=== PATIENT | female | born 1965 | race Caucasian/White ===

== ENCOUNTER → 2016-10-24 | Outpatient (CLI) | payer BC ==
[~2016-10-24] MED LIST: ADAL40KI SC; ASPCH81X PO; ATOR-24 PO; CHOLCAP5 PO; FOLI1TAB8 PO; IRON PO; METH2.5T PO; TRAZ50TA35 PO; ZNTT/150 PO
--- NOTE | 2016-10-24 13:47 | MAMMOGRAPHY REPORT ---
UNILATERAL RIGHT DIGITAL DIAGNOSTIC MAMMOGRAM: 10/24/2016 CLINICAL HISTORY: Callback from screening mammogram for right breast calcifications. TECHNIQUE: Spot magnification right cc and ML views were obtained. COMPARISON: Comparison is made to exams dated: 10/11/2016 mammogram, 03/28/2014 mammogram, 10/28/2013 u ltrasound, 10/28/2013 mammogram, 10/01/2012 mammogram, and 10/03/2011 mammogram - [facility]. BREAST COMPOSITION: The tissue of the right breast is heterogeneously dense, which may obscure smal l masses. FINDINGS: Spot magnification views of the right breast demonstrate a small 3 cm cluster of punctate and amorphous calcifications in the right upper outer quadrant, not clearly evident on prior exams. Given that the cluster is new, it is indeterminate and stereotactic biopsy is recommended for furt her evaluation. Other faint calcifications are seen scattered throughout the right breast which do not appear significantly changed compared to prior exams. IMPRESSION: ACR BI-RADS CATEGORY 4: SUSPICIOUS New 3 mm cluster of calcifications in the right upper outer quadrant. The calcifications are indete rminate and stereotactic biopsy is recommended for further evaluation. A phone call was made to the physician's office to confirm faxed results were received. The patient has been verbally notified of the results. She tentatively scheduled the biopsy before leaving the department. The patient is currently on a baby aspirin; I will leave it up to the patient's physic ankur if she can safely discontinue the aspirin for 5 days prior to the procedure. Approximately 10% of breast cancers are not detected with mammography. A negative mammographic repor t should not delay biopsy if a clinically suggestive mass is present. Izzy Birmingham M.D. ah/:10/24/2016 09:01:30 Audio Visual Production Specialist: Ana Luisa VARGAS(Anders)(Akbar), [facility] letter sent: Abnormal 4/5 BI-RADS Code: ACR BI-RADS Category 4: Suspicious
== END | disposition home or self-care (01) ==
LOC: C.MAMM 08:20
DX: R92.1 Mammographic calcification found on diagnostic imaging of breast (principal)

== ENCOUNTER → 2016-10-31 | Outpatient (CLI) | payer BC ==
[~2016-10-31] MED LIST changes: +FOLI1TAB7 PO; -FOLI1TAB8 PO
--- NOTE | 2016-10-31 13:13 | Discharge Instructions ---
Discharge Instructions Procedure Procedure Date: Oct 31, 2016. Reason for visit: Right Calcs. Discharge Discharge Date: Oct 31, 2016. Discharge Diagnosis: status post breast biopsy Instructions Activity Recommendations: Additional Limitations (see below) Return to School/Work: no limitations Recommended Home Diet: No Limitations Provider Instructions: ACTIVITY RECOMMENDATIONS: * No lifting, pushing, pulling or exercising the affected side for three days. RETURN TO SCHOOL/WORK: * You may return to work/school after the procedure, but do not perform any strenuous activities for 24 to 48 hours. MEDICATIONS: * Tylenol (two 325 mg) every four to six hours if needed for mild pain (if not allergic to Tylenol). DIET: * Resume previous diet. SPECIAL CARE INSTRUCTIONS: * Keep biopsy site dry for 24 hours. May shower after 24 hours, but do not soak (bathe) incision. * May remove Tegaderm (plastic patch) tomorrow AFTER showering. * Leave the steri-strips on for one week. Allow the steri-strips to fall off by themselves. If not off after one week, you may remove them. You may place a Bandaid crosswise over the strips, if desired. * Apply ice 10 minutes on and 10 minutes off as needed. * Wear a bra at bedtime to sleep more comfortably for 2-3 days. * Your referring physician should have the results after approximately 5 to 7 business days. * Call for unusual bleeding, fever, drainage, etc or if you have any questions call during normal business hours or after hours call Dr Birmingham, . FOLLOW UP VISIT: Follow-up with Referring Physician as scheduled. Allergies Coded Allergies: No Known Allergies (Verified , 07/02/16) Osmani Jefferson Recommendations: Call your doctor if: * Temperature above 101 degrees * Pain not relieved by pain medicine ordered * There is increased drainage or redness from any incision * You have any unanswered questions or concerns. Your Doctors Instructions noted above were prepared by provider Izzy Birmingham. Patient Signature Section: Patient Instructions Signature Page Joi Montero Patient (or Guardian) Signature/Date: I have read and understand the instructions given to me by my caregivers. Caregiver/RN/Doctor Signature/Date: The above-named patient and/or guardian has received patient instructions on this date. + Original Patient Signature Page (only) stays with chart. Please make copy for patient.
--- NOTE | 2016-10-31 16:11 | MAMMOGRAPHY REPORT ---
UNILATERAL RIGHT DIGITAL DIAGNOSTIC MAMMOGRAM: 10/31/2016 CLINICAL HISTORY: Status post stereotactic biopsy of right upper outer quadrant calcifications. TECHNIQUE: Postprocedural right CC and LM views were obtained. COMPARISON: Comparison is made to exams dated: 10/11/2016 mammogram, 10/24/2016 mammogram, 10/28/2013 m ammogram, and 10/01/2012 mammogram - [facility]. BREAST COMPOSITION: The tissue of the right breast is heterogeneously dense, which may obscure smal l masses. FINDINGS: A new biopsy marker clip is seen at the site of the biopsied calcifications in the right upper outer quadrant. No significant postbiopsy hematoma is seen. IMPRESSION: POST PROCEDURE IMAGING FOR MARKER PLACEMENT New biopsy marker clip status post stereotactic biopsy of right upper outer quadrant calcifications. Pathology results are pending. Approximately 10% of breast cancers are not detected with mammography. A negative mammographic repor t should not delay biopsy if a clinically suggestive mass is present. Izzy Birmingham M.D. ah/:10/31/2016 13:29:11 Electrical Experimental Mechanic: Raz VARGAS(Anders)(M), [facility] BI-RADS Code: Post Procedure Imaging For Marker Placement
--- NOTE | 2016-10-31 16:11 | MAMMOGRAPHY REPORT ---
STEREOTACTIC GUIDED BIOPSY RIGHT BREAST: 10/31/2016 CLINICAL HISTORY: Indeterminate calcifications in the right upper outer quadrant. PATIENT CONSENT: The procedure, risks, benefits, and alternatives of stereotactic biopsy with clip p lacement were discussed with the patient, and verbal and written consent was obtained. A timeout wa s performed immediately prior to the procedure. PROCEDURE DESCRIPTION: With stereotactic guidance, aseptic technique, and lidocaine as a local anest hetic (1% lidocaine to anesthetize the skin and 1% lidocaine with epinephrine to anesthetize the leonel per tissues), the area of concern was sampled multiple times with a 9-gauge vacuum-assisted biopsy n eedle (Suros Eviva). The path of approach was lateral. The specimen radiograph demonstrates calcif ications to be present in the samples. A metallic marker clip was placed at the biopsy site. This was confirmed on postprocedure mammograms. Direct pressure was applied at the biopsy site and hemos tasis was readily achieved. The patient tolerated the procedure without complication. She was give n wound care instructions. COMPARISON: Comparison is made to exams dated: 10/24/2016 mammogram, 10/11/2016 mammogram, 03/28/2014 m ammogram, 10/28/2013 mammogram, 10/01/2012 mammogram, and 04/03/2012 mammogram - [facility]. IMPRESSION: STEREOTACTIC GUIDED BIOPSY Stereotactic biopsy of indeterminate calcifications in the right upper outer quadrant, with clip tia cement. The patient will receive pathology results from her referring physician. Izzy Birmingham M.D. /:10/31/2016 13:14:19 Attending Technologist: Raz Alvarez RT(R)(M), [facility] Eye Physician: Kendra Anglin RT(R)(M), [facility]
== END | disposition home or self-care (01) ==
LOC: C.MAMM 12:36
DX: R92.1 Mammographic calcification found on diagnostic imaging of breast (principal)

== ENCOUNTER → 2016-12-10 | Outpatient (CLI) | payer BC | END | disposition home or self-care (01) | LOC: C.PAPS 10:07 | PROVIDERS: ATTEND Obstetrics & Gynecology | DX: Z01.419 Encounter for gynecological examination (general) (routine) without abnormal findings (principal) ==

== ENCOUNTER → 2017-08-05 | Outpatient (CLI) | payer BC ==
--- NOTE | 2017-08-05 17:31 | DIAGNOSTIC IMAGING REPORT ---
PELVIS AND RIGHT HIP MRI HISTORY: Right hip pain. TECHNIQUE: Multiplanar multisequence MRI of the pelvis and right hip were performed without the use of intravenous contrast. COMPARISON STUDY: None. FINDINGS: Normal marrow signal intensity seen throughout the visualized osseous structures. No fracture or dislocation within the pelvis or hips. No hip effusions. Cartilage spaces are maintained for age. The visualized pelvic structures are within normal limits. Soft tissues are unremarkable. Possible focal tear within the anterior labrum of the right hip only seen on image 11 of 18 of the sagittal/oblique STIR sequences. IMPRESSION: 1. Suspect a small focal tear within the anterior labrum of the right hip as described above. 2. No fracture or dislocation within the pelvis or hips. Electronically signed by: Avila Alexandre M.D. 08/05/2017 5:30 PM Dictated Date/Time: 08/05/2017 5:21 PM
== END | disposition home or self-care (01) ==
LOC: C.MRIBC 16:00
DX: M25.552 Pain in left hip (principal)

== ENCOUNTER → 2017-08-08 | Outpatient (CLI) | payer BC | END | disposition home or self-care (01) | LOC: C.RDSM 13:30 | PROVIDERS: ATTEND Orthopaedic Surgery | DX: M25.551 Pain in right hip (principal) ==

== ENCOUNTER → 2017-10-16 | Outpatient (CLI) | payer BC ==
[~2017-10-16] MED LIST changes: -FOLI1TAB7 PO; +FOLI1TAB8 PO
--- NOTE | 2017-10-16 14:52 | MAMMOGRAPHY REPORT ---
BILATERAL DIGITAL SCREENING MAMMOGRAM TOMOSYNTHESIS WITH CAD: 10/16/2017 CLINICAL HISTORY: Routine screening. Patient has no complaints. TECHNIQUE: Breast tomosynthesis in addition to standard 2D mammography was performed. Current study was also evaluated with a Computer Aided Detection (CAD) system. COMPARISON: Comparison is made to exams dated: 10/31/2016 mammogram, 10/11/2016 mammogram, 09/30/2011 mammogram, 09/26/2010 mammogram, 09/25/2009 mammogram - [facility], and 07/30/2007. BREAST COMPOSITION: The tissue of both breasts is heterogeneously dense, which may obscure small mas ses. FINDINGS: No suspicious masses, calcifications, or areas of architectural distortion are noted in ei ther breast. There has been no significant interval change compared to prior exams. Bilateral benign appearing calcifications are not significantly changed. A biopsy marker clip is again noted in the right upper outer quadrant. IMPRESSION: ACR BI-RADS CATEGORY 2: BENIGN There is no mammographic evidence of malignancy. A 1 year screening mammogram is recommended. The pa tient will receive written notification of the results. Approximately 10% of breast cancers are not detected with mammography. A negative mammographic report should not delay biopsy if a clinically suggestive mass is present. Izzy Birmingham M.D. ah/:10/16/2017 14:22:40 Production Support Consultant: Kat PUTNAM)(M), [facility] letter sent: Normal 1/2 BI-RADS Code: ACR BI-RADS Category 2: Benign
== END | disposition home or self-care (01) ==
LOC: C.MAMM 08:29
DX: Z12.31 Encounter for screening mammogram for malignant neoplasm of breast (principal)

== ENCOUNTER 2025-06-23 11:50 | Inpatient (IN) ==
[2025-06-23] MEDS: OPTIRAY 320 125ml IV ONE (12:08)
--- NOTE | 2025-06-23 12:19 | Emergency Department Note ---
Impression & Plan Stroke-like symptoms, Headache, Elevated troponin, Supraclinoid carotid artery aneurysm, small ED Provider Note NAME: MELISSA CADE AGE: 60 SEX: F : 1965 ARRIVES VIA: Walk-In INFORMANT: Patient ED PROVIDER(S): Valdez King MD CHIEF COMPLAINT: Headache, left neck/jaw pain, left upper and lower extremity heaviness PLAN: Disposition: Admit MEDICAL DECISION MAKING: The patient is a pleasant 60-year-old woman with a past medical history of CAD, history of NSTEMI, rheumatoid arthritis, hypertension, hyperlipidemia, anxiety who presents to the emergency department via walk-in for evaluation of headache, left neck and jaw pain, and left arm and leg heaviness with numbness and tingling that she reports began abruptly at 11 AM and she reports feeling asymptomatic prior to that. She reports she was not doing thing particular and was simply sitting at rest. She denies a history of similar symptoms or regular headaches upon our discussion but did report monthly headaches on telestroke assessment. She denies chest pain or shortness of breath. Stroke alert was activated from triage given patient's report of symptoms and onset. Case was discussed with [facility] [place], Dr. Hull, who did evaluate the patient via the telestroke monitor. On evaluation patient is no acute distress, afebrile with blood pressure 160/100 and vital signs otherwise stable. She appears clinically dry. She exhibits drift of the left lower extremity. Otherwise she demonstrates subjective decrease sensation of the left upper and left lower extremities. CT of the head and CTA of the head and neck were negative for ICH or ischemia. No large vessel occlusion. Note is made of a 4 mm left ICA supraclinoid aneurysm which is not necessarily an absolute contraindication for TNK per discussion with Dr. Hull. Appreciate [facility] [place]. At this time patient's symptoms are minimal and prefers to defer TNK at this time. Recommendations are for admission for standard stroke evaluation including MRI of the brain and to add MRV as well for further evaluation. Recommends low-dose aspirin. WBC 4K, nonspecific. H/H and platelets within normal limits. Chemistry without metabolic acidosis. Electrolytes and LFTs unremarkable. Initial high- sensitivity troponin 194, nonspecific with EKG without overt acute ischemia and no chest pain. Case was discussed with Dr. Britton, [facility] hospitalist, who will evaluate the patient for admission. Further management per admitting team. Triage Nursing notes reviewed and agree them. Prior/external medical records reviewed Vital Signs: reviewed Differential diagnosis: Infection, dehydration, metabolic abnormality, hypo/hyperglycemia, electrolyte disturbance, anemia, hypoxia, cardiac sources, intracerebral event, toxicologic, neurologic, as well as other pathologies. ER treatment provided: See below. Diagnostics interpreted by me: ECG: Sinus rhythm with sinus arrhythmia, occasional PVCs, 65 bpm, incomplete right bundle branch block, no overt ST elevation or depression, QTc 443, QRS 100. Cardiac Monitoring: An order for continuous cardiac monitoring was placed and demonstrated Sinus rhythm with sinus arrhythmia, occasional PVCs, 65 bpm. Laboratory studies: See below Imaging studies: See below Consultation(s): Dr. Hull, [facility] [place]. Dr. Britton, [facility] hospitalist. HPI: Per MDM. ROS: See above HPI for pertinent positives & negatives. A total of 10 systems reviewed and were otherwise negative. VITALS:See Below PHYSICAL EXAMINATION: GENERAL: Awake, alert, in no distress BMI 27.5 HENT: Normocephalic, atraumatic. Oropharynx with dry mucous membranes and otherwise unremarkable. . EYES: Normal conjunctiva. Sclera non-icteric. NECK: Supple. No nuchal rigidity. FROM. No JVD. RESPIRATORY: Clear to auscultation. CARDIAC: Regular rate, normal rhythm. Extremities warm and well perfused. Pulses equal. ABDOMEN: Soft, non-distended. No tenderness to palpation. No rebound or guarding. No masses. MUSCULOSKELETAL: Chest examination reveals no tenderness. The back is symmetrical on inspection without obvious abnormality. There is no CVA tenderness to palpation. No joint edema. LOWER EXTREMITIES: Calves are equal size bilaterally and non-tender. No edema. No discoloration. NEURO: Cranial nerves II-XII grossly intact. Drift of the left lower extremity. Otherwise she demonstrates subjective decrease sensation of the left upper and left lower extremities. SKIN: No rash or jaundice noted. Valdez King MD Past Med/Surg History Problem List (Updated 06/24/25 @ 00:47 by Valdez King MD) Supraclinoid carotid artery aneurysm, small (Acute) Elevated troponin (Acute) Headache (Acute) Stroke-like symptoms (Acute) Elevated troponin Aneurysm Paresthesia Dense breast tissue Family history of malignant neoplasm of breast MOTHER, MATERNAL GRANDMOTHER, MATERNAL AUNT At increased risk for malignant neoplasm of breast JAMES GANDHI 26.50% Dyslipidemia Arthritis (Chronic) Depression with anxiety (Chronic) Encounter for annual routine gynecological examination Hypertension (Chronic) Rheumatoid arthritis (Acute) CAD (coronary artery disease) NSTEMI (non-ST elevated myocardial infarction) (Acute) Medical History Internal hemorrhoids Tubular adenoma Biliary dyskinesia Post-menopausal Depression Hx of myocardial infarction 04/2015 - Cardiac Cath done [facility], single DIANN to LAD Surgical History S/P laparoscopic cholecystectomy Hx of colonoscopy x2; last 2 yr ago Hx of section History of cardiac cath 04/2015 [facility] Family History Grandmother (Maternal) Breast cancer Aunt Breast cancer maternal Mother Breast cancer, Onset Age: 50 recurred age 78, gene testing recently NEG Brother Colorectal cancer Grandmother (Paternal) Rheumatoid arthritis Grandfather (Paternal) Kidney disease Other Arthritis Social History Smoking Status: Never smoker Do You Dip or Chew Tobacco: No; Hx Alcohol Use: No Hx Substance Use: No Preferred Language: Fijian Communication Ability: Effective Visual Impairment: No Limitations Ekg Monitor Tech Required: No Beliefs That Will Affect Care: None Current Living Situation: Spouse Other Information That Helps Us Care for You: No Feels Safe at Home: Yes Safety Concerns: Feels Safe At This Time Assistive Devices: Glasses Allergies Allergies Allergy/AdvReac Type Severity Reaction Status Date / Time No Known Allergies Allergy Verified 06/23/25 13:38 Home Meds Home Medications Medication Instructions Recorded Confirmed aspirin 81 mg tablet,delayed 81 mg PO HS 10/23/18 06/23/25 release (Marcin Low Dose Aspirin) rosuvastatin 40 mg tablet 40 mg PO HS 01/18/21 06/23/25 colestipol 1 gram tablet 1 g PO Q OTHER DAY 05/28/21 06/23/25 cholecalciferol (vitamin D3) 25 25 mcg PO HS 06/23/25 06/23/25 mcg (1,000 unit) tablet (Vitamin D3) doxepin 10 mg capsule 10 mg PO HS PRN Sleep 06/23/25 06/23/25 nitroglycerin 0.4 mg sublingual 0.4 mg sublingual DIRECTED PRN 06/23/25 06/23/25 tablet Angina Previous Rx's Medication Instructions Recorded carvedilol 6.25 mg tablet 6.25 mg PO BID #60 tabs 01/18/21 Results & Data (ED) Vital Signs Vital Signs - 24 hr 06/23/25 11:52 06/23/25 12:13 06/23/25 12:13 Temperature 36.6 C Temperature Source Temporal Artery Scan Pulse Rate 78 Pulse Rate [Apical] 64 Pulse Rhythm Regular Pulse Strength Normal Respiratory Rate 20 Respiratory Effort / Characteristics Non-Labored Spontaneous Respiratory Depth Normal Respiratory Pattern Blood Pressure 164/102 H Blood Pressure [Right Arm] 175/94 H Blood Pressure Mean 122 Blood Pressure Mean [Right Arm] 121 Blood Pressure Position Sitting Pulse Oximetry 98 95 Oxygen Delivery Method Room Air Room Air Sepsis Recent Fever Within 48 Hours No Sepsis New/Unexplained Change in Mental Status N/A Sepsis Action Taken by Nursing No Action Required 06/23/25 12:15 06/23/25 12:22 06/23/25 12:30 Temperature Temperature Source Pulse Rate 61 Pulse Rate [Apical] 60 65 Pulse Rhythm Pulse Strength Respiratory Rate 15 18 Respiratory Effort / Characteristics Non-Labored Spontaneous Non-Labored Spontaneous Respiratory Depth Normal Normal Respiratory Pattern Regular Blood Pressure Blood Pressure [Right Arm] 160/90 H 156/90 H Blood Pressure Mean Blood Pressure Mean [Right Arm] 113 112 Blood Pressure Position Pulse Oximetry 96 98 Oxygen Delivery Method Room Air Room Air Sepsis Recent Fever Within 48 Hours Sepsis New/Unexplained Change in Mental Status Sepsis Action Taken by Nursing 06/23/25 13:00 06/23/25 14:00 Temperature Temperature Source Pulse Rate Pulse Rate [Apical] 66 65 Pulse Rhythm Pulse Strength Respiratory Rate 17 22 Respiratory Effort / Characteristics Non-Labored Spontaneous Respiratory Depth Normal Respiratory Pattern Blood Pressure Blood Pressure [Right Arm] 133/82 149/91 H Blood Pressure Mean Blood Pressure Mean [Right Arm] 99 110 Blood Pressure Position Pulse Oximetry 97 94 Oxygen Delivery Method Room Air Room Air Sepsis Recent Fever Within 48 Hours Sepsis New/Unexplained Change in Mental Status Sepsis Action Taken by Nursing Laboratory Data Attestation: I reviewed the patient's lab results. 06/23/25 12:19 06/23/25 12:19 Lab Results 06/23/25 06/23/25 06/23/25 Range/Units 12:17 12:19 12:23 WBC 4.16 L (4.8-10.8) K/ul RBC 4.27 (4.20-5.40) M/uL Hgb 12.6 (12.0-16.0) g/dl POC Hgb 12.6 (12.0-16.0) g/dl Hct 37.3 (37.0-47.0) % POC Hct 37 (37-47) % MCV 87.4 (80.0-100.0) fL MCH 29.5 (25.0-34.0) pg MCHC 33.8 (32.0-36.0) g/dL RDW Std Deviation 41.6 (36.4-46.3) fL RDW Coeff of Jean 13.1 (11.5-14.5) % Plt Count 200 (130-400) K/uL MPV 11.8 (9.4-12.4) fL Immature Gran % (Auto) 0.5 % Neut % (Auto) 54.0 % Lymph % (Auto) 29.6 % [place] % (Auto) 13.0 % Eos % (Auto) 1.9 % Baso % (Auto) 1.0 % Neut # (Auto) 2.25 (1.40-6.50) K/uL Lymph # (Auto) 1.23 (1.20-3.40) K/uL [place] # (Auto) 0.54 (0.11-0.59) K/uL Eos # (Auto) 0.08 (0.00-0.50) K/uL Baso # (Auto) 0.04 (0.00-0.20) K/uL Immature Gran # (Auto) 0.02 (0.01-0.20) K/uL PT 11.3 (9.0-12.0) Seconds INR 1.0 (0.9-1.1) APTT 27 (21-31) Seconds PTT Ratio 1.0 POC Sodium 140 (135-144) mmol/L Sodium 137 (136-145) mmol/L POC Potassium 3.6 (3.3-5.0) mmol/L Potassium 3.5 (3.5-5.1) mmol/L POC Chloride 106 (101-112) mmol/L Chloride 108 H (98-107) mmol/L Carbon Dioxide 22 (21-32) mmol/L POC Total CO2 19 L (24-31) mmol/L Anion Gap 7 (3-11) POC Anion Gap 20.0 (16-25) mmol/L POC BUN 13 (7-18) mg/dl BUN 13 (6-23) mg/dl Creatinine 0.76 (0.6-1.2) mg/dl POC Creatinine 0.8 (0.6-1.3) mg/dl Est Cr Clr Drug Dosing 78.6 ml/min eGFR 88.54 BUN/Creatinine Ratio 17.1 (10-20) Glucose 100 H (70-99(Fasting)) mg/dl POC Glucose 97 (70-99) mg/dl POC Glucose (other) 98 (70-99) mg/dl Calcium 8.4 L (8.6-10.3) mg/dl POC Ioniz Calcium Wilmar 1.09 L (1.12-1.32) mmol/l Magnesium 2.0 (1.7-2.4) mg/dl Total Bilirubin 0.7 (0.2-1.0) mg/dl AST 18 (13-39) U/L ALT 21 (7-52) U/L Alkaline Phosphatase 70 (34-104) U/L Troponin I High Sens 194.3 H* (0-14) pg/ml Total Protein 6.4 (6.0-8.3) gm/dl Albumin 3.5 (3.4-5.0) gm/dl Globulin 2.9 (2.5-4.0) gm/dl Albumin/Globulin Ratio 1.2 (0.9-2) Urine Color Urine Appearance (Clear) Urine pH (4.5-7.5) Ur Specific Clinton (1.000-1.030) Urine Protein (Negative) Urine Glucose (UA) (Negative) Urine Ketones (Negative) Urine Blood (Negative) Urine Nitrite (Negative) Urine Bilirubin (Negative) Urine Urobilinogen (Negative) Ur Leukocyte Esterase (Negative) Urine WBC (Auto) (0-5) /hpf Urine RBC (Auto) (0-2) /hpf U Hyaline Cast (Auto) (0-2) /lpf U Epithel Cells (Auto) (0-2) /hpf Urine Bacteria (Auto) (None Seen) Urine Comment 06/23/25 06/23/25 Range/Units 12:50 14:15 WBC (4.8-10.8) K/ul RBC (4.20-5.40) M/uL Hgb (12.0-16.0) g/dl POC Hgb (12.0-16.0) g/dl Hct (37.0-47.0) % POC Hct (37-47) % MCV (80.0-100.0) fL MCH (25.0-34.0) pg MCHC (32.0-36.0) g/dL RDW Std Deviation (36.4-46.3) fL RDW Coeff of Jean (11.5-14.5) % Plt Count (130-400) K/uL MPV (9.4-12.4) fL Immature Gran % (Auto) % Neut % (Auto) % Lymph % (Auto) % [place] % (Auto) % Eos % (Auto) % Baso % (Auto) % Neut # (Auto) (1.40-6.50) K/uL Lymph # (Auto) (1.20-3.40) K/uL [place] # (Auto) (0.11-0.59) K/uL Eos # (Auto) (0.00-0.50) K/uL Baso # (Auto) (0.00-0.20) K/uL Immature Gran # (Auto) (0.01-0.20) K/uL PT (9.0-12.0) Seconds INR (0.9-1.1) APTT (21-31) Seconds PTT Ratio POC Sodium (135-144) mmol/L Sodium (136-145) mmol/L POC Potassium (3.3-5.0) mmol/L Potassium (3.5-5.1) mmol/L POC Chloride (101-112) mmol/L Chloride (98-107) mmol/L Carbon Dioxide (21-32) mmol/L POC Total CO2 (24-31) mmol/L Anion Gap (3-11) POC Anion Gap (16-25) mmol/L POC BUN (7-18) mg/dl BUN (6-23) mg/dl Creatinine (0.6-1.2) mg/dl POC Creatinine (0.6-1.3) mg/dl Est Cr Clr Drug Dosing ml/min eGFR BUN/Creatinine Ratio (10-20) Glucose (70-99(Fasting)) mg/dl POC Glucose (70-99) mg/dl POC Glucose (other) (70-99) mg/dl Calcium (8.6-10.3) mg/dl POC Ioniz Calcium Wilmar (1.12-1.32) mmol/l Magnesium (1.7-2.4) mg/dl Total Bilirubin (0.2-1.0) mg/dl AST (13-39) U/L ALT (7-52) U/L Alkaline Phosphatase (34-104) U/L Troponin I High Sens 1426.4 H* D (0-14) pg/ml Total Protein (6.0-8.3) gm/dl Albumin (3.4-5.0) gm/dl Globulin (2.5-4.0) gm/dl Albumin/Globulin Ratio (0.9-2) Urine Color Yellow Urine Appearance Clear (Clear) Urine pH 6.0 (4.5-7.5) Ur Specific [place] 1.043 H (1.000-1.030) Urine Protein Negative (Negative) Urine Glucose (UA) Negative (Negative) Urine Ketones Negative (Negative) Urine Blood 1+ H (Negative) Urine Nitrite Negative (Negative) Urine Bilirubin Negative (Negative) Urine Urobilinogen Negative (Negative) Ur Leukocyte Esterase 2+ H (Negative) Urine WBC (Auto) 21-50 H (0-5) /hpf Urine RBC (Auto) 0-2 (0-2) /hpf U Hyaline Cast (Auto) 0-2 (0-2) /lpf U Epithel Cells (Auto) 3-5 H (0-2) /hpf Urine Bacteria (Auto) 1+ H (None Seen) Urine Comment Administered Medications Aspirin (Aspirin 81 Mg Ectab) 81 mg PO HS MARTIN Stop: 07/23/25 20:59 Last Admin: 06/23/25 20:39 Dose: 81 mg Documented By: EFRAIN Carvedilol (Carvedilol 6.25 Mg Tab) 6.25 mg PO BID MARTIN Stop: 07/23/25 20:59 Last Admin: 06/23/25 20:44 Dose: Not Given Documented By: EFRAIN Colestipol HCl (Colestipol Hcl 1 Gm Tab) 1 gm PO Q2D@2100 MARTIN Stop: 07/23/25 20:59 Last Admin: 06/23/25 20:39 Dose: 1 gm Documented By: EFRAIN Enoxaparin Sodium (Enoxaparin Inj 40 Mg/0.4 Ml Syr) 40 mg SQ Q24H MARTIN Stop: 07/23/25 15:43 Last Admin: 06/23/25 17:36 Dose: 40 mg Documented By: NOLAN Rosuvastatin Calcium (Rosuvastatin Calcium 20 Mg Tab) 40 mg PO HS MARTIN Stop: 07/23/25 20:59 Last Admin: 06/23/25 20:39 Dose: 40 mg Documented By: EFRAIN Vitamin D (Cholecalciferol 25 Mcg (1000 Units) Tab) 25 mcg PO MARTIN Stop: 07/23/25 20:59 Last Admin: 06/23/25 20:39 Dose: 25 mcg Documented By: EFRAIN Discontinued Medications Aspirin (Aspirin Chew 324 Mg) 81 mg PO NOW STA Stop: 06/23/25 12:43 Last Admin: 06/23/25 13:00 Dose: 81 mg Documented By: BERTA Gadobutrol (Gadobutrol 65ml Vial) 7.5 ml IV ONCE ONE Stop: 06/23/25 17:01 Last Admin: 06/23/25 17:01 Dose: 7.5 ml Documented By: [facility] Sodium Chloride (Nss) 1,000 mls @ 999 mls/hr IV .Q1H1M ONE Stop: 06/23/25 13:00 Last Infusion: 06/23/25 13:42 Dose: Infused Documented By: Admin: 06/23/25 12:25 Dose: 999 mls/hr Documented By: BERTA Ioversol (Optiray 320 125ml) 120 ml IV ONCE ONE Stop: 06/23/25 12:08 Last Admin: 06/23/25 12:08 Dose: 120 ml Documented By: BIANCA Imaging Data Radiologist's Impression: Chest X-Ray 06/23/25 12:00 XR chest 1V portable HISTORY: 60 years-old Female neuro deficit, acute stroke suspected acute stroke like symptoms COMPARISON: CTA neck of same day, chest radiograph 12/13/2020 TECHNIQUE: AP view of the chest FINDINGS: Cardiomediastinal silhouettes are within normal limits. No pneumothorax, pleural effusion, airspace consolidation or pulmonary edema. Bones of the chest appear grossly intact. IMPRESSION: No acute process. ACT 112: Negative or not required by law. The above report was generated using voice recognition software. It may contain grammatical, syntax or spelling errors. Electronically signed by: Young De Leon M.D. 06/23/2025 1:00 PM Discharge Plan Visit Data Chief Complaint: Neuro Symptoms/Deficit Stated Complaint: SUDDEN HEADACHE/NUMBNESS ON L SIDE ED Provider: Valdez King Discharge Problem: Stroke-like symptoms, Headache, Elevated troponin, Supraclinoid carotid artery aneurysm, small Patient Disposition: Admitted As Inpatient Condition: Fair Discharge Instructions Interventions: ED Discharge Assessment Last Done: 06/23/25 15:19 Discharge Problem: Headache Qualifiers: Headache type: tension-type Headache chronicity pattern: acute headache I ntractability: intractable Qualified Code(s): G44.201 - Tension-type headache, unspecified, intractable
--- NOTE | 2025-06-23 12:23 | CT Scan Report ---
CT SCAN OF THE BRAIN WITHOUT IV CONTRAST CLINICAL HISTORY: Neurological deficit. Stroke like symptoms. COMPARISON STUDY: No priors TECHNIQUE: Unenhanced axial CT scan of the brain is performed from the vertex to the skull base. Imag es are reviewed in the axial, sagittal, and coronal planes. A dose lowering technique was utilized a dhering to the principles of ALARA. FINDINGS: Brain parenchyma: The brain parenchyma is normal in appearance. There is no hemorrhage, mass effect, or evidence of acute territorial ischemia by CT criteria. Cabrales-white matter differentiation is preser eh. No extra-axial fluid collection is seen. Ventricles, sulci, cisterns: Normal in configuration. Intracranial vasculature: The visualized intracranial vasculature at the skull base is normal in appe arance. Calvarium: Unremarkable. Sinuses and mastoids: The visualized paranasal sinuses are clear. The mastoid air cells are well pneu matized. Orbits: The bony orbits are grossly intact. IMPRESSION: There is no hemorrhage, mass effect, or evidence of acute territorial ischemia by CT minor shin. ACT 112: Negative or not required by law. Electronically signed by: José Miguel Jim M.D. 06/23/2025 12:21 PM
[2025-06-23] MEDS: SODIUM CHLORIDE 0.9% 1,000 ML IV ONE (12:25)
--- NOTE | 2025-06-23 12:30 | CT Scan Report ---
CT angio head w con CLINICAL HISTORY: 60 years-old Female with neuro deficit, acute stroke suspected. Acute stroke lik e symptoms COMPARISON STUDY: Head CT same day, brain MRI 02/29/2016 TECHNIQUE: Following the IV administration of 120 cc of Optiray, CT angiogram of the brain was perfor med from the skull base to the vertex. Images are reviewed in the axial, sagittal, and coronal planes . 3-D MIPS images are created and assessed. IV contrast was administered without complication. All me asurements were obtained according to NASCET criteria. A dose lowering technique was utilized adherin g to the principles of ALARA. FINDINGS: CT BRAIN: Dictated separately. CT ANGIOGRAM OF THE BRAIN: The imaged bilateral internal carotid arteries are patent. There is a saccular medially oriented 4 x 3 x 3 mm aneurysm involving the supraclinoid segment right ICA on image 77 series 6 without rupture. The bilateral anterior and middle cerebral arteries are also patent. The vertebrobasilar system and p osterior cerebral arteries are widely patent. There is no aneurysm, high-grade stenosis, or proximal branch occlusion identified. Dural sinuses appear patent. IMPRESSION: 1. No high-grade stenosis or arterial occlusion. 2. Saccular 4 mm aneurysm of the supraclinoid segment right ICA without rupture. ACT 112: Negative or not required by law. The above report was generated using voice recognition software. It may contain grammatical, syntax o r spelling errors. Electronically signed by: Young De Leon M.D. 06/23/2025 12:28 PM
--- NOTE | 2025-06-23 12:30 | CT Scan Report ---
CT ANGIOGRAPHY OF THE NECK WITH CONTRAST CLINICAL HISTORY: neuro deficit, acute stroke suspected COMPARISON STUDY: No previous studies for comparison. Technique: CT angiography of the carotid and vertebral arteries was obtained using Optiray and 3D rec onstruction on an independent workstation. NASCET criteria was utilized. Automated exposure control was utilized for the study. A dose lowering technique was utilized adhering to the principles of ALA RA. CT DOSE: 996.54 mGy.cm Findings: The visualized portions of lung apices are unremarkable. There is no evidence of pathologic cervical lymphadenopathy. No abnormal neck masses are visualized. There is no evidence for carotid artery occlusion, hemodynamically significant stenosis, or dissectio n. Note is made of calcific atheromatous plaque involving the left internal carotid artery origin wit h less than 40% diameter narrowing. There is no evidence of vertebral artery aneurysm occlusion stenosis or dissection. IMPRESSION: 1. No evidence of carotid or vertebral artery occlusion, hemodynamically significant stenosis, or dis section ACT 112: Negative or not required by law. Electronically signed by: Dmitry Donnelly M.D. 06/23/2025 12:29 PM
[2025-06-23 12:46] LABS: Hematocrit (blood only) 37.3 % (37.0-47.0); Hemoglobin 12.6 g/dl (12.0-16.0); Immature Granulocytes # (auto) 0.02 K/uL (0.01-0.20); Immature Granulocytes % (auto) 0.5 %; Mean Corpuscular Hemoglobin 29.5 pg (25.0-34.0); Mean Corpuscular Volume 87.4 fL (80.0-100.0); Platelet Count 200 K/uL (130-400); RDW Standard Deviation 41.6 fL (36.4-46.3); Red Blood Count 4.27 M/uL (4.20-5.40); White Blood Count 4.16 K/ul (4.8-10.8)
[2025-06-23 12:59] LABS: INR 1.0 (0.9-1.1); Partial Thromboplastin Time 27 Seconds (21-31); Prothrombin Time 11.3 Seconds (9.0-12.0)
[2025-06-23] MEDS: ASPIRIN CHEW 324 MG PO STA (13:00)
--- NOTE | 2025-06-23 13:02 | XRay Report ---
XR chest 1V portable HISTORY: 60 years-old Female neuro deficit, acute stroke suspected acute stroke like symptoms COMPARISON: CTA neck of same day, chest radiograph 12/13/2020 TECHNIQUE: AP view of the chest FINDINGS: Cardiomediastinal silhouettes are within normal limits. No pneumothorax, pleural effusion, airspace c onsolidation or pulmonary edema. Bones of the chest appear grossly intact. IMPRESSION: No acute process. ACT 112: Negative or not required by law. The above report was generated using voice recognition software. It may contain grammatical, syntax o r spelling errors. Electronically signed by: Young De Leon M.D. 06/23/2025 1:00 PM
[2025-06-23 13:05] LABS: Alanine Aminotransferase 21.0 U/L (7-52); Albumin Globulin Ratio 1.2 (0.9-2); Alkaline Phosphatase 70.0 U/L (34-104); Anion Gap 7.0 (3-11); Bilirubin,Total 0.7 mg/dl (0.2-1.0); Blood Urea Nitrogen 13.0 mg/dl (6-23); Calcium 8.4 mg/dl (8.6-10.3); Carbon Dioxide 22.0 mmol/L (21-32); Chloride 108.0 mmol/L (98-107); Creatinine Clr Calc Pharmacy 78.6 ml/min; Globulin 2.9 gm/dl (2.5-4.0); Glucose 100.0 mg/dl (70-99(Fasting)); Magnesium 2.0 mg/dl (1.7-2.4); Potassium 3.5 mmol/L (3.5-5.1); Sodium 137.0 mmol/L (136-145); Total Protein 6.4 gm/dl (6.0-8.3)
[2025-06-23 13:16] LABS: Appearance Urine Clear (Clear); Bacteria Urine Automated 1+ (None Seen); Cast Urine Automated 0-2 /lpf (0-2); Glucose Urine UA Negative (Negative); RBC Urine Automated 0-2 /hpf (0-2); WBC Urine Automated 21-50 /hpf (0-5)
--- NOTE | 2025-06-23 14:21 | History & Physical Report ---
Date of Service June 23, 2025 Assessment & Plan (1) Paresthesia: (2) Aneurysm: (3) CAD (coronary artery disease): (4) Elevated troponin: Plan #Paresthesias with unilateral paresthesias combined with vascular risks and established vascular disease, obviously stroke/TIA is the diagnosis of exclusion. That said the fact that it spares her face, and lead with a headache, makes me more suspicious about complicated migraine. - Complete stroke workupMRI brain, cardiac monitoring, lipids and A1c in the morning, echocardiogram. (MRA and MRV under "aneurysm" below) - with this being her first and only episode, if this ends up being complicated migraine rather than cerebrovascular, watchful waiting rather than prophylaxis would be reasonable; given that she just started the doxepin, it is also potentially possible that it could have been a trigger, although less likely #aneurysm - incidental findingdoubt it is part of her symptom complex given that she has no bleeding and it is fairly small. Per neurology recommendationsMR imaging. Further recommendations based on MRI findings #elevated troponin - prior known coronary disease (100% LAD with no significant other lesions about 10 years ago)she exercises regularly with no exertional symptoms. She has no t ypical cardiac symptoms now. She did have jaw and arm pain, but this seemed more in line with paresthesias section abovecould potentially be atypical anginaworkup would be the same either way: Trend troponin, echocardiogram. If the troponin shows more of an MO type rise, or of course if the echo shows any new findings/new wall motion abnormalities, then would consult cardiology. If the workup is entirely reassuring, it is potentially demand ischemia from pushing against such significant hypertension whenever she was first evaluated #coronary artery disease - see above. Await trending troponin and echocardiogram; at the same time, she is exercising regularly with no symptoms, so the situation seems like it will be reassuring. #hypertension - Initial elevation seems to have been in response to the stress of what she was going through at first presentation. Blood pressure has improved now. Continue to follow. Continue Coreg. #DVT prophylaxis -lovenox History of Present Illness Chief Complaint: Left-sided numbness Primary Care Provider: Fransisconessellie Negrete patient is a very pleasant 60-year-old female presenting with left-sided arm and leg numbness. She woke up today feeling in her usual state of health. She was driving. She had a sudden onset of an occipital and then left jaw headache and paindescribing as quite intense, sharp and stabbing. It sounds like the headache itself probably only lasted about 10 minutes. Shortly thereafter while the headache was going on she started with left arm/hand numbness, followed a little bit later by left leg numbness. No clear motor weakness. She does not recall feeling any face symptoms whatsoever. Her came later but did not see any facial droop or slurred speech. The headache went away. Shortly thereafter the numbness started letting up, but she did feel lightheaded. Now the headache is gone, the leg symptoms have resolved. In the hands symptoms, while persisting, are improving. No chest pain no shortness of breath. She has been walking regularly3 miles at a time probably 4 days a week. She notes no exertional symptoms, no chest pain no shortness of breath with exertionshe last walked I believe yesterday (if it was not yesterday was only in the last few days). Allergies Allergy/AdvReac Type Severity Reaction Status Date / Time No Known Allergies Allergy Verified 06/23/25 13:38 Home Medications Medication Instructions Recorded Confirmed Type aspirin 81 mg tablet,delayed 81 mg PO HS 10/23/18 06/23/25 History release (Marcin Low Dose Aspirin) carvedilol 6.25 mg tablet 6.25 mg PO BID #60 tabs 01/18/21 06/23/25 Rx rosuvastatin 40 mg tablet 40 mg PO HS 01/18/21 06/23/25 History colestipol 1 gram tablet 1 g PO Q OTHER DAY 05/28/21 06/23/25 History cholecalciferol (vitamin D3) 25 25 mcg PO HS 06/23/25 06/23/25 History mcg (1,000 unit) tablet (Vitamin D3) doxepin 10 mg capsule 10 mg PO HS PRN Sleep 06/23/25 06/23/25 History nitroglycerin 0.4 mg sublingual 0.4 mg sublingual DIRECTED PRN 06/23/25 06/23/25 History tablet Angina Past Med/Surg History Problem List (Updated 06/23/25 @ 14:43 by Jos Britton DO) Elevated troponin Aneurysm Paresthesia Dense breast tissue Family history of malignant neoplasm of breast MOTHER, MATERNAL GRANDMOTHER, MATERNAL AUNT At increased risk for malignant neoplasm of breast JAMES GANDHI 26.50% Dyslipidemia Arthritis (Chronic) Depression with anxiety (Chronic) Encounter for annual routine gynecological examination Hypertension (Chronic) Rheumatoid arthritis (Acute) CAD (coronary artery disease) NSTEMI (non-ST elevated myocardial infarction) (Acute) Medical History Internal hemorrhoids Tubular adenoma Biliary dyskinesia Post-menopausal Depression Hx of myocardial infarction 04/2015 - Cardiac Cath done [facility], single DIANN to LAD Surgical History S/P laparoscopic cholecystectomy Hx of colonoscopy x2; last 2 yr ago Hx of section History of cardiac cath 04/2015 [facility] Family History Grandmother (Maternal) Breast cancer Aunt Breast cancer maternal Mother Breast cancer, Onset Age: 50 recurred age 78, gene testing recently NEG Brother Colorectal cancer Grandmother (Paternal) Rheumatoid arthritis Grandfather (Paternal) Kidney disease Other Arthritis Social History Smoking Status: Never smoker Do You Dip or Chew Tobacco: No; Hx Alcohol Use: Yes Hx Substance Use: No Preferred Language: Citizen Of [place] Communication Ability: Effective Visual Impairment: No Limitations Beliefs That Will Affect Care: None Current Living Situation: Spouse Feels Safe at Home: Yes Assistive Devices: Glasses Review of Systems Review of Systems: All systems reviewed & are unremarkable except as noted in HPI & below Physical Exam Physical Exam: In general she is awake and alert oriented, pleasant no distress. HEENT normocephalic atraumatic mucous membranes moist. Cardio is regular without rubs murmurs or gallops. Lungs are clear to auscultation bilaterally no rales rhonchi or wheeze with good effort. extremities show no cyanosis clubbing or edema. Neuro shows cranial nerves II through XII to be grossly intact gross motor is 5 out of 5 and equal bilateral upper and lower extremities. Sensation is equal and intact with no deficits to confrontational light touch. Mental status shows good recent and remote recall normal mood and affect good judgment and insight. Labs and diagnostics noted. Results & Data Results & Data Vital Signs (Past 12 Hours) Vital Signs Temp Pulse Pulse Resp BP BP Pulse Ox 06/23/25 13:00 66 17 133/82 97 06/23/25 12:30 65 18 156/90 H 98 06/23/25 12:22 61 06/23/25 12:15 60 15 160/90 H 96 06/23/25 12:13 64 175/94 H 06/23/25 12:13 95 06/23/25 11:52 97.9 F 78 20 164/102 H 98 O2 Del Method 06/23/25 13:00 Room Air 06/23/25 12:30 Room Air 06/23/25 12:22 06/23/25 12:15 Room Air 06/23/25 12:13 06/23/25 12:13 Room Air 06/23/25 11:52 Room Air PG Care Time/CCT Total # of Minutes Spent Total Time Spent with Patient: Total time spent is greater than 50% in coordination of care (as documented) at patient's floor/unit and/or counseling patient: Coding Level of Care Code 16757 INT INP/OBS CARE 3/75MIN Diagnoses Paresthesia R20.2 Aneurysm I72.9 CAD (coronary artery disease) I25.10 Elevated troponin R79.89
[2025-06-23] MEDS ORDERED: PHARMACIST DISCHARGE MED REC CONSULT PRN (15:44)
[2025-06-23] MEDS ORDERED: NITROGLYCERIN SL 0.4 MG/TAB TAB SL PRN (15:44)
[2025-06-23] MEDS: GADOBUTROL 65ML VIAL IV ONE (17:01)
--- NOTE | 2025-06-23 17:09 | Magnetic Resonance Report ---
Clinical history: Headaches and left arm numbness Technique: Magnetic resonance angiography was performed of the [place] using a 3 D time of flight technique. Angiographic reconstructions were obtained Findings: There is an apparent 4 mm saccular aneurysm at the junction of the right posterior communicating artery and the right internal carotid artery The visualized internal carotid arteries appear unremarkable bilaterally. No definite stenosis is identified of the anterior, middle, or posterior cerebral artery circulations bilaterally. The cerebellar arteries are patent. The basilar artery appears unremarkable. No vascular malformation is seen. No other definite abnormality is noted. Impression: 4 mm right PCOM aneurysm ACT 112: Positive. There are findings on this exam that require communication between the performing entity and the patient following Patient Test Result Information Act ([place] ACT 112) guidelines. Electronically signed by Reji Grimes 06-23-2025 5:08 PM
--- NOTE | 2025-06-23 17:19 | Magnetic Resonance Report ---
Clinical History: Headaches Technique: Multiple T1 and T2-weighted magnetic resonance images were obtained of the brain both before and after the administration of 7.5 cc of Gadavist intravenous gadolinium contrast Findings: There is no sign of acute or old infarction with normal-appearing diffusion weighted images. There are a few small foci of increased T2 signal intensity in the periventricular white matter. No mass lesion or other area of abnormal enhancement is identified. There is no intracranial hemorrhage or other fluid collection. No midline shift or other form of herniation is seen. There is no hydrocephalus. There is increased T2 signal intensity in the right petrous apex without appreciable enhancement. There is no increased T1 signal intensity to suggest a cholesterol granuloma The pituitary gland appears normal. Normal flow-voids are seen within the arteries of the [id number]. The orbits and paranasal sinuses appear normal. The mastoid air cells appear clear Impression: 1. Mild white matter abnormalities, which could be due to chronic small vessel ischemic disease 2. No sign of infarction or mass lesion Electronically signed by Reji Grimes 06-23-2025 5:19 PM
[2025-06-23] MEDS: ENOXAPARIN INJ 40 MG/0.4 ML SYR SQ SCH (17:36)
--- NOTE | 2025-06-23 18:04 | Magnetic Resonance Report ---
MRV of the head without contrast History: Left arm numbness . Comparison: none Technique: Head MRV: 2D [id number] MR venogram (MRV) of the head was performed without intravenous contrast. Findings: Head MRV demonstrates no definite thrombosis or stenosis of the major intracranial dural sinuses or deep cerebral veins. Impression: Head MRV demonstrates patent major dural and deep venous sinuses intracranially. Electronically signed by Fan Tang 06-23-2025 5:57 PM
[2025-06-23] MEDS: CHOLECALCIFEROL 25 MCG (1000 UNITS) TAB PO SCH (20:39)
[2025-06-23] MEDS: ROSUVASTATIN CALCIUM 20 MG TAB PO SCH (20:39)
[2025-06-23] MEDS: ASPIRIN 81 MG ECTAB PO SCH (20:39)
[2025-06-23] MEDS: COLESTIPOL HCL 1 GM TAB PO SCH (20:39)
[2025-06-24] MEDS: ACETAMINOPHEN 500 MG TAB PO PRN (03:42)
[2025-06-24 07:08] LABS: Anion Gap 6.0 (3-11); Blood Urea Nitrogen 11.0 mg/dl (6-23); Calcium 8.7 mg/dl (8.6-10.3); Carbon Dioxide 25.0 mmol/L (21-32); Chloride 109.0 mmol/L (98-107); Cholesterol 104.0 mg/dl (0-200); Creatinine Clr Calc Pharmacy 72.4 ml/min; Glucose 101.0 mg/dl (70-99(Fasting)); HDL Cholesterol 42.0 mg/dl; Potassium 3.7 mmol/L (3.5-5.1); Sodium 140.0 mmol/L (136-145); Triglycerides 193.0 mg/dl (0-150)
[2025-06-24 07:36] VITALS: TEMP 97.9
[2025-06-24 07:36] LABS: Hematocrit (blood only) 38.4 % (37.0-47.0); Hemoglobin 13.0 g/dl (12.0-16.0); Immature Granulocytes # (auto) 0.02 K/uL (0.01-0.20); Immature Granulocytes % (auto) 0.4 %; Mean Corpuscular Hemoglobin 29.8 pg (25.0-34.0); Mean Corpuscular Volume 88.1 fL (80.0-100.0); Platelet Count 187 K/uL (130-400); RDW Standard Deviation 42.1 fL (36.4-46.3); Red Blood Count 4.36 M/uL (4.20-5.40); White Blood Count 4.54 K/ul (4.8-10.8)
--- NOTE | 2025-06-24 09:26 | Cardiology Consultation ---
Date of Consultation June 24, 2025 Assessment & Plan (1) Elevated troponin: 2. History of CAD-- post PCI with DIANN to LAD 04/2015 3. Acute headache/jaw pain/left arm and leg numbness 4. Questionable history of rheumatoid arthritis 5. Hypertensionat goal on BB on rest. Hypertensive response to exercise 6. Dyslipidemia--high intensity statin 7. 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 Etiology of presenting symptoms and mild troponin rise unclear. Suspicion for high risk CAD very low. Reviewed prior catheterization from 2014. At that time did not appear to have significant atherosclerotic disease. LAD occlusion seems more likely secondary to dissection or thromboembolism. Stress echo today shows appropriate augmentation of LV with no high risk features. Troponin elevation may have been secondary to demand from stress of noncardiac event and initial hypertension versus possible vasospasm. Recommendations: Do not feel needs additional testing from cardiac standpoint. Safe from a cardiac standpoint for discharge today. Continue home aspirin, rosuvastatin, carvedilol. With LVH at rest, hypertensive response on stress and question of vasospasm would start amlodipine 2.5 mg 2.5 mg daily. Follow-up with me in 3 to 4 weeks. History of Present Illness Attending Physician: Sami Tilley History of Present Illness Mrs. Montero is a very pleasant 60-year-old seen today due to elevated troponin. She is known to me from outpatient care. She has history of prior [place] and April 2015 at which time had DIANN to LAD occlusion. No other significant CAD. LAD thought to be thrombotic versus possible dissection. Since that time started on well without recurrent chest pain. Admitted yesterday after had sudden onset stabbing left-sided headache/jaw ache with associated left arm/leg numbness. Headache eventually let up but numbness/shoulder pain persisted. No chest pain or shortness of breath. Underwent extensive neuroimaging which was large unremarkable except for 4 mm saccular aneurysm of right PCOM artery. ECG showed sinus rhythm with no new ST changes, rare PVC. HS TropI [id number]. By yesterday evening was largely back to baseline without any symptoms. No recurrence of symptoms overnight. Today feeling well. Telemetry unremarkable. Echo Allergies Allergy/AdvReac Type Severity Reaction Status Date / Time No Known Allergies Allergy Verified 06/23/25 13:38 Home Medications Medication Instructions Recorded Confirmed Type aspirin 81 mg tablet,delayed 81 mg PO HS 10/23/18 06/23/25 History release (Marcin Low Dose Aspirin) carvedilol 6.25 mg tablet 6.25 mg PO BID #60 tabs 01/18/21 06/23/25 Rx rosuvastatin 40 mg tablet 40 mg PO HS 01/18/21 06/23/25 History colestipol 1 gram tablet 1 g PO Q OTHER DAY 05/28/21 06/23/25 History cholecalciferol (vitamin D3) 25 25 mcg PO HS 06/23/25 06/23/25 History mcg (1,000 unit) tablet (Vitamin D3) doxepin 10 mg capsule 10 mg PO HS PRN Sleep 06/23/25 06/23/25 History nitroglycerin 0.4 mg sublingual 0.4 mg sublingual DIRECTED PRN 06/23/25 06/23/25 History tablet Angina Patient History Medical History Internal hemorrhoids Tubular adenoma Biliary dyskinesia Post-menopausal Depression Hx of myocardial infarction 04/2015 - Cardiac Cath done [facility], single DIANN to LAD Surgical History S/P laparoscopic cholecystectomy Hx of colonoscopy x2; last 2 yr ago Hx of section History of cardiac cath 04/2015 [facility] Family History Grandmother (Maternal) Breast cancer Aunt Breast cancer maternal Mother Breast cancer, Onset Age: 50 recurred age 78, gene testing recently NEG Brother Colorectal cancer Grandmother (Paternal) Rheumatoid arthritis Grandfather (Paternal) Kidney disease Other Arthritis Social History Smoking Status: Never smoker Do You Dip or Chew Tobacco: No; Hx Alcohol Use: No Hx Substance Use: No Preferred Language: Turkmen Communication Ability: Effective Visual Impairment: No Limitations Metal Furnace Operator Required: No Beliefs That Will Affect Care: None Current Living Situation: Spouse Other Information That Helps Us Care for You: No Feels Safe at Home: Yes Safety Concerns: Feels Safe At This Time Assistive Devices: None Review of Systems Review of Systems: All systems reviewed & are unremarkable except as noted in HPI & below Physical Exam Physical Exam: General: No acute distress, comfortable. HEENT: Sclera anicteric Neck: Normal carotid upstrokes, no bruits. No appreciable JVD. Lungs: Clear to auscultation bilaterally without rales, rhonchi or wheezes. Cardiac: Regular rate and rhythm. No murmurs Abdomen: Soft and nontender. Extremities/vascular: Well perfused. No peripheral edema. Radial diminished on right, 2+ left Neurologic: Nonfocal Psychiatric: Affect appropriate. Alert and oriented. Results & Data Vital Signs (Past 12 Hours) Vital Signs Temp Pulse Pulse Resp BP Pulse Ox O2 Del Method 06/24/25 07:17 97.9 F 56 L 16 151/77 H 97 Room Air 06/24/25 04:09 98.2 F 59 L 16 169/84 H 99 Room Air 06/23/25 23:21 98.1 F 55 L 16 134/79 97 Room Air 06/23/25 23:00 58 L PG Care Time/CCT Total # of Minutes Spent Total Time Spent with Patient: Total time spent is greater than 50% in coordination of care (as documented) at patient's floor/unit and/or counseling patient: Coding Level of Care Code 07657 IN/OBS CONSULT LVL 4,60M Diagnoses Elevated troponin R79.89
[2025-06-24 09:31] LABS: Hemoglobin A1C 5.7 % (4.5-5.6)
--- NOTE | 2025-06-24 09:48 | XCELERA ---
[id number] \\[email or web address]\[email or web address]_PDF_[id number]
[2025-06-24 11:39] VITALS: BP 121/73; PULSE 70; RESP 18; O2SAT 94
--- NOTE | 2025-06-24 12:36 | XCELERA ---
[id number] \\[facility]\[email or web address]_PDF_Reports\[id number]
--- NOTE | 2025-06-24 14:11 | Discharge Summary ---
Discharge Summary Date of Service June 24, 2025 Principal Dx & Hospital Course #1 = Principal Diagnosis (1) Paresthesia: (2) Aneurysm: (3) CAD (coronary artery disease): (4) Elevated troponin: Plan #Paresthesias with unilateral paresthesias combined with vascular risks and established vascular disease, obviously stroke/TIA is the diagnosis of exclusion. That said the fact that it spares her face, and lead with a headache, makes me more suspicious about complicated migraine. - Complete stroke workupMRI brain, cardiac monitoring, lipids and A1c in the morning, echocardiogram. (MRA and MRV under "aneurysm" below) - with this being her first and only episode, if this ends up being complicated migraine rather than cerebrovascular, watchful waiting rather than prophylaxis would be reasonable; given that she just started the doxepin, it is also potentially possible that it could have been a trigger, although less likely #aneurysm - incidental findingdoubt it is part of her symptom complex given that she has no bleeding and it is fairly small. Per neurology recommendationsMR imaging. Further recommendations based on MRI findings #elevated troponin - prior known coronary disease (100% LAD with no significant other lesions about 10 years ago)she exercises regularly with no exertional symptoms. She has no typical cardiac symptoms now. She did have jaw and arm pain, but this seemed more in line with paresthesias section abovecould potentially be atypical anginaworkup would be the same either way: Trend troponin, echocardiogram. If the troponin shows more of an ME type rise, or of course if the echo shows any new findings/new wall motion abnormalities, then would consult cardiology. If the workup is entirely reassuring, it is potentially demand ischemia from pushing against such significant hypertension whenever she was first evaluated #coronary artery disease - see above. Await trending troponin and echocardiogram; at the same time, she is exercising regularly with no symptoms, so the situation seems like it will be reassuring. #hypertension - Initial elevation seems to have been in response to the stress of what she was going through at first presentation. Blood pressure has improved now. Continue to follow. Continue Coreg. #DVT prophylaxis -lovenox Admission HPI Per Admitting Provider patient is a very pleasant 60-year-old female presenting with left-sided arm and leg numbness. She woke up today feeling in her usual state of health. She was driving. She had a sudden onset of an occipital and then left jaw headache and paindescribing as quite intense, sharp and stabbing. It sounds like the headache itself probably only lasted about 10 minutes. Shortly thereafter while the headache was going on she started with left arm/hand numbness, followed a little bit later by left leg numbness. No clear motor weakness. She does not recall feeling any face symptoms whatsoever. Her came later but did not see any facial droop or slurred speech. The headache went away. Shortly thereafter the numbness started letting up, but she did feel lightheaded. Now the headache is gone, the leg symptoms have resolved. In the hands symptoms, while persisting, are improving. No chest pain no shortness of breath. She has been walking regularly3 miles at a time probably 4 days a week. She notes no exertional symptoms, no chest pain no shortness of breath with exertionshe last walked I believe yesterday (if it was not yesterday was only in the last few days). Discharge Plan Discharge Items Patient Disposition: Home - Self-Care Reason For Visit: STROKE LIKE SYMPTOMS Discharge Diagnosis: NSTEMI Condition on Discharge: Fair Activity: Resume your previous activity Non-emergency contact: Primary Care Provider Call non-emergency contact if: you have any medication questions Follow-up/Referrals: Ever Negrete [Primary Care Provider] - Diet: Heart Healthy Addtl Attending Provider Instructions: Home Care: * Take your medications exactly as directed. Don't skip doses. * Remember that recovery after a heart attack takes time. Plan to rest for at lease 4-8 weeks while you recover. Then return to normal activity when your doctor says it's okay. * Ask your doctor about joining a heart rehabilitation program. * Tell your doctor if you are feeling depressed. Feelings of sadness are common after a heart attack, but it is important that you speak to someone if you are feeling overwhelmed by these feelings. * If you are having chest pain, call 911 for an ambulance. Do NOT drive yourself to the hospital. * Ask your family members to learn CPR. * Learn to take your own blood pressure and pulse. Keep a record of your results. Ask your doctor when you should seek emergency medical attention. He or she will tell you which blood pressure reading is dangerous. Lifestyle Changes: * Maintain a healthy weight. Get help to lose any extra pounds. * Cut back on salt. * Limit canned, dried, packaged, and fast foods. * Don't add salt to your food. * Season foods with herbs instead of salt when you cook. * Break the smoking habit. Enroll in a stop-smoking program to improve your chances of success. * Limit fatty foods. * Ask your doctor about having your lipid levels checked regularly. * Build up your activity according to your doctor's recommendation. * Ask your doctor when it's okay to resume sexual activity. * Tell your doctor about any erectile dysfunction (ED) medication you are ta narciso. Some ED medications are not safe if you take certain heart medications. * Try to manage stress. Follow Up: It is important for you to keep your follow up appointments with your medical provider. Pending Studies at Discharge: No Stand-Alone Forms: My [facility], Smoking Cessation, Medications to Prevent Stroke Medications and DC Order Prescriptions: Continued rosuvastatin 40 mg tablet 40 mg PO HS carvedilol 6.25 mg tablet 6.25 mg PO BID Qty: 60 7RF Rx Instructions: must administer with a meal/food aspirin [Marcin Low Dose Aspirin] 81 mg Tablet,Delayed Release (Dr/Ec) 81 mg PO HS colestipol 1 gram Tablet 1 g PO Q OTHER DAY Patient Comments: Original Directions: 2gram by mouth daily. Pt now taking 1g by mouth every other day UNLESS there is need to increase. 06/23/25 Rx Instructions: Take 1g tablet by mouth at every other night doxepin 10 mg capsule 10 mg PO HS PRN (Reason: Sleep) nitroglycerin 0.4 mg tablet, sublingual 0.4 mg SL DIRECTED PRN (Reason: Angina) Rx Instructions: PLACE 1 TABLET UNDER THE TONGUE EVERY 5 MINUTES FOR UP TO 3 DOSES NEEDED FOR CHEST PAIN.CALL 911 IF PAIN PERSISTS. cholecalciferol (vitamin D3) [Vitamin D3] 25 mcg (1,000 unit) Tablet 25 mcg PO HS Discharge Orders: Discharge Order (Routine); Ordered 06/24/25 Ordered By: Sami Tilley Admission Data Admit Date/Time: 06/23/25 14:26 Attending Provider: Sami Tilley Admit Provider: Jos Britton Primary Care Provider: Ever Negrete Other Providers: Jos Britton; Fan Michaud Other Interventions: Discharge Summary Assessment (RN) Last Done: 06/24/25 13:56 Hospital Stay Data Consultations 06/23/25 13:21 ED Decision to Admit Stat 06/23/25 15:35 Consult Cardiology Routine 06/23/25 15:55 Consult Cardiology Routine Diagnostic Imagining Performed 06/23/25 12:00 CT angio head w con Stat CT angio neck with con Stat CT head/brain wo con Stat 06/23/25 14:26 MR venography head wo con Stat 06/23/25 15:44 MR angio head wo con Urgent MR brain wo/w con Routine Pending Results Patient Have Any Pending Studies at Discharge: No Discharge Instructions Given to Patient (Per Discharging Provider) Home Care: * Take your medications exactly as directed. Don't skip doses. * Remember that recovery after a heart attack takes time. Plan to rest for at lease 4-8 weeks while you recover. Then return to normal activity when your doctor says it's okay. * Ask your doctor about joining a heart rehabilitation program. * Tell your doctor if you are feeling depressed. Feelings of sadness are common after a heart attack, but it is important that you speak to someone if you are feeling overwhelmed by these feelings. * If you are having chest pain, call 911 for an ambulance. Do NOT drive yourself to the hospital. * Ask your family members to learn CPR. * Learn to take your own blood pressure and pulse. Keep a record of your results. Ask your doctor when you should seek emergency medical attention. He or she will tell you which blood pressure reading is dangerous. Lifestyle Changes: * Maintain a healthy weight. Get help to lose any extra pounds. * Cut back on salt. * Limit canned, dried, packaged, and fast foods. * Don't add salt to your food. * Season foods with herbs instead of salt when you cook. * Break the smoking habit. Enroll in a stop-smoking program to improve your chances of success. * Limit fatty foods. * Ask your doctor about having your lipid levels checked regularly. * Build up your activity according to your doctor's recommendation. * Ask your doctor when it's okay to resume sexual activity. * Tell your doctor about any erectile dysfunction (ED) medication you are taking. Some ED medications are not safe if you take certain heart medications. * Try to manage stress. Follow Up: It is important for you to keep your follow up appointments with your medical provider. Coding Diagnoses Paresthesia R20.2 Aneurysm I72.9 CAD (coronary artery disease) I25.10 Elevated troponin R79.89
--- NOTE | 2025-06-24 17:40 | Electrocardiogram Report ---
Test Reason : Blood Pressure : */* mmHG Vent. Rate : 65 BPM Atrial Rate : 65 BPM P-R Int : 152 ms QRS Dur : 100 ms QT Int : 426 ms P-R-T Axes : 49 -48 52 degrees QTcB Int : 443 ms Sinus rhythm with sinus arrhythmia with occasional Premature ventricular complexes Left axis deviation Incomplete right bundle branch block Abnormal ECG When compared with ECG of 27-Oct-2018 09:29, Premature ventricular complexes are now Present Incomplete right bundle branch block is now Present Confirmed by Fan Ayala ([id number]) on 06/24/2025 5:40:33 PM Referred By: REFERRED SELF Confirmed By: Fan Ayala
== END 2025-06-24 14:32 | disposition home or self-care (01) | DRG 282 ==
LOC: ED 11:50 → SUATTDRO 14:26 → 2S 14:26